=== PATIENT | male | born 1960 | race Caucasian/White ===

== ENCOUNTER → 2016-06-03 | Outpatient (CLI) | payer BC ==
[2016-06-03 13:52] LABS: Prostate Specific Antigen 0.75 ng/mL (0.00-4.00)
[2016-06-03 15:08] LABS: Hepatitis C Virus IgG Index 0.03
[2016-06-03 15:11] LABS: Hepatitis C Virus IgG Ab Negative (Negative)
== END | disposition home or self-care (01) ==
LOC: LABWHC1 12:20
PROVIDERS: ATTEND Family Medicine
DX: Z00.01 Encounter for general adult medical examination with abnormal findings (principal); E78.5 Hyperlipidemia, unspecified; E03.9 Hypothyroidism, unspecified; I10 Essential (primary) hypertension
CPT/HCPCS: 36415; 84153; 86803

== ENCOUNTER 2016-08-25 08:36 | Day surgery (SDC) | payer BC ==
[2016-08-24 09:06] VITALS: BMI 34.1
[~2016-08-25 08:36] MED LIST: LACTATED RINGERS 1,000 ML IV SCH
[2016-08-25 09:35] VITALS: RESP 18; TEMP 98
[2016-08-25] MEDS ORDERED: LACTATED RINGERS 1,000 ML IV ONE (09:35)
[2016-08-25] MEDS ORDERED: PROPOFOL 10 MG/ML 20 ML VIAL IV ONE (09:45)
[2016-08-25] MEDS ORDERED: LIDOCAINE 1% INJ 10MG/ML (20 ML MDV) ONE (09:45)
--- NOTE | 2016-08-25 09:50 | P.GSHP ---
History of Present Illness H&P Date: 08/25/16 Chief Complaint: Colon cancer screening Patient here today for colonoscopy. Last colonoscopy was approximately 5 years ago. He does have a family history of colon cancer and an aunt and grandfather. No rectal bleeding or melena. No history of polyps. 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 History of Any Multi-Drug Resistant Organisms: None Reported Past Surgical History: Appendectomy, Coronary Bypass/CABG, Heart Catheterization Additional Past Surgical History / Comment(s): CABG-5 vessel Past Anesthesia/Blood Transfusion Reactions: No Reported Reaction Smoking Status: Never smoker - Past Family History Mother Family Medical History: Cancer Additional Family Medical History / Comment(s): breast Father Family Medical History: No Reported History Medications and Allergies Home Medications Medication Instructions Recorded Confirmed Type Aspirin 162 mg PO DAILY 08/24/16 08/25/16 History Levothyroxine (Unknown Dose) 0.137 tab PO QAM 08/24/16 08/25/16 History Lopressor (Unk Dose) 25 tab PO QAM 08/24/16 08/25/16 History Lovaza (Unknown Dose) 1 tab PO DAILY 08/24/16 08/24/16 History Sertraline HCl [Zoloft] 50 mg PO DAILY 08/24/16 08/25/16 History Simvastatin [Zocor] 40 mg PO HS 08/24/16 08/25/16 History Allergies Allergy/AdvReac Type Severity Reaction Status Date / Time No Known Allergies Allergy Verified 08/24/16 08:55 Surgical - Exam Vital Signs Temp Pulse Resp BP Pulse Ox 98.0 F 71 18 122/82 97 08/25/16 09:34 08/25/16 09:34 08/25/16 09:34 08/25/16 09:34 08/25/16 09:34 Physical exam: General: Well-developed, well-nourished HEENT: Normocephalic, sclerae nonicteric Abdomen: Nontender, nondistended Extremities: No edema Neuro: Alert and oriented Assessment and Plan (1) Colon cancer screening Narrative/Plan: Will proceed with colonoscopy at this time. Status: Acute
--- NOTE | 2016-08-25 10:04 | P.PCN ---
Date of Procedure: 08/25/16 Preoperative Diagnosis: Postoperative Diagnosis: Procedure(s) Performed: PREOPERATIVE DIAGNOSIS: Screening POSTOPERATIVE DIAGNOSIS: Small cecal polyp PROCEDURE: Colonoscopy with biopsy ANESTHESIA: MAC SURGEON: Tacho Walker M.D. SPECIMENS: Cecal polyp ENDOSCOPIC PROCEDURE: The patient was placed on the endoscopy table in the left decubitus position. The Olympus colonoscope was inserted into the anus and passed under direct visualization to the base of the cecum. The appendiceal orifice was visualized. From that point the scope was slowly withdrawn inspecting all surfaces carefully. Just adjacent to the appendiceal orifice there was a very small polyp that was removed using the cold biopsy forceps. There were no neoplastic inflammatory or polypoid lesions throughout the remainder of the cecum, ascending, transverse, descending, sigmoid and rectum. There was no diverticulosis noted. Digital rectal examination was normal. The patient was taken to the recovery room in stable condition per anesthesia guidelines. RECOMMENDATIONS: Increase fiber. Await biopsy results. Implants: Indications for Procedure: Operative Findings: Description of Procedure:
[2016-08-25 10:29] VITALS: BP 113/75; PULSE 76
== END 2016-08-25 10:52 | disposition home or self-care (01) ==
LOC: ORWHC2ENDO 08:36
PROVIDERS: ATTEND Surgery
DX: Z12.11 Encounter for screening for malignant neoplasm of colon (principal); K63.5 Polyp of colon; Z80.0 Family history of malignant neoplasm of digestive organs; I25.10 Atherosclerotic heart disease of native coronary artery without angina pectoris; Z95.1 Presence of aortocoronary bypass graft; E78.5 Hyperlipidemia, unspecified; Z79.82 Long term (current) use of aspirin; Z79.899 Other long term (current) drug therapy
CPT/HCPCS: 88305; 45380; J2001; J2704

== ENCOUNTER → 2019-08-22 | Outpatient (CLI) | payer BC ==
--- NOTE | 2019-08-22 16:36 | XR ---
EXAMINATION TYPE: XR chest 2V DATE OF EXAM: 08/22/2019 COMPARISON: 09/28/2009 INDICATION: Pre-MRI evaluation TECHNIQUE: Frontal and lateral views of the chest are obtained. FINDINGS: The heart size is normal. The pulmonary vasculature is normal. The lungs are clear. Sternotomy wires are in the midline. Epicardial leads are not identified. IMPRESSION: 1. No acute pulmonary process.
== END | disposition home or self-care (01) ==
LOC: RADXRMAIN 16:05
PROVIDERS: ATTEND Orthopaedic Surgery
DX: Z48.812 Encounter for surgical aftercare following surgery on the circulatory system (principal); Z98.890 Other specified postprocedural states
CPT/HCPCS: 71046